=== PATIENT | male | born 1940 | race Caucasian/White ===

== ENCOUNTER 2017-02-11 13:08 | Emergency (ER) | payer OTHER ==
[~2017-02-11] VITALS: Ht 172.7 cm; Wt 78.2 kg
[~2017-02-11 13:08] MED LIST: LEVO25TA4 PO; PROP10TA6 PO; ROSU20 PO; SYMB80AE INH; VENTAER INH
[2017-02-11 13:38] VITALS: BP 149/70; PULSE 70; RESP 16; TEMP 98.6; O2SAT 96
[2017-02-11] MEDS ORDERED: LISI-519 PO (14:35)
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
[2017-02-11] MEDS ORDERED: ONDANSETRON ODT 4 MG TAB PO ONE (17:15)
[2017-02-11] MEDS ORDERED: KETOROLAC TROMETHAMINE 60 MG/2 ML (IM) VIAL IM ONE (17:15)
[2017-02-11] MEDS ORDERED: ORPHENADRINE INJ 60 MG/2 ML AMP IM ONE (17:15)
== END 2017-02-11 17:31 | disposition home or self-care (01) ==
LOC: PHED 13:08 → PHEFT 17:31
DX: M54.2 Cervicalgia (principal); R51 Headache; V49.40XA Driver injured in collision with unspecified motor vehicles in traffic accident, initial encounter; Y92.488 Other paved roadways as the place of occurrence of the external cause
CPT/HCPCS: 72125; 72131; 96372; 99285; J1885; J2360